=== PATIENT | male | born 1950 | race Caucasian/White ===

== ENCOUNTER → 2017-06-11 | Outpatient (CLI) | payer MEDICARE ==
[2017-06-11 10:30] LABS: BLOOD UREA NITROGEN 14 MG/DL (7-18)
[2017-06-11 10:30] LABS: CREATININE FOR GFR 0.96 MG/DL (0.70-1.30); GLOMERULAR FILTRATION RATE > 60.0 (>49)
== END ==
LOC: M LAB 09:32
DX: R42 Dizziness and giddiness (principal); Z86.73 Personal history of transient ischemic attack (TIA), and cerebral infarction without residual deficits
CPT/HCPCS: 82565

== ENCOUNTER → 2017-06-16 | Outpatient (CLI) | payer MEDICARE ==
[~2017-06-16] MED LIST: PROHANCE 279.3MG/ML 15ML VIAL (A9576) As Ordered
== END ==
LOC: M RAD 11:01
DX: Z86.73 Personal history of transient ischemic attack (TIA), and cerebral infarction without residual deficits (principal)
CPT/HCPCS: A9576

== ENCOUNTER → 2020-08-23 | Outpatient (CLI) | payer MEDICARE ==
[~2020-08-23] MED LIST changes: +CARD120C3 PO; +COQ-100C5 PO; +D31000CA4 PO; +ELIQ5TAB PO; +FINA5TAB2 PO; +FLOM0.4C39 PO; +IRBE300T7 PO; +LASI40TA9 PO; +LOSA100T50 PO; +MAGN100T PO; +OMEP-218 PO; +OYST500T92 PO; +PRAV80TA2 PO; -PROHANCE 279.3MG/ML 15ML VIAL (A9576) As Ordered; +SM P99TA PO
== END ==
LOC: M LABSMTC 11:57
PROVIDERS: ATTEND Anesthesiology
DX: Z01.818 Encounter for other preprocedural examination (principal); Z11.52 Encounter for screening for COVID-19

== ENCOUNTER 2020-08-28 13:33 | Day surgery (SDC) | payer MEDICARE ==
[~2020-08-28] VITALS: Ht 177.8 cm; Wt 111.1 kg
[~2020-08-28 13:33] MED LIST changes: +LIDOCAINE 1% MDV 20ML VIAL SQ PRN; +LR 1,000 ML IV ONE; +ceFAZolin SOD 2 GM in IV 1 EA IV ONE
[2020-08-28] MEDS ORDERED: fentaNYL 100 MCG/2 ML INJECTION (J3010) As Ordered ONE (15:09)
[2020-08-28] MEDS ORDERED: MIDAZOLAM INJ 2MG/2ML VIAL (J2250 PER 1MG) As Ordered ONE (15:09)
[2020-08-28] MEDS ORDERED: LIDOCAINE 2% 100MG/5ML SDV (FOR ANES.) As Ordered ONE (15:09)
[2020-08-28] MEDS ORDERED: propofoL 200 MG/20 ML VIAL As Ordered ONE ×2 (15:09→15:10)
[2020-08-28] MEDS ORDERED: LIDOCAINE 1% MDV 20ML VIAL As Ordered ONE (15:29)
[2020-08-28] MEDS ORDERED: ONDANSETRON 4MG/2ML VIAL As Ordered ONE (16:41)
[2020-08-28 17:04] VITALS: BP 136/72
--- NOTE | 2020-08-28 19:06 | RO ---
OPERATIVE NOTE DATE OF OPERATION: 08/28/2020 PREOPERATIVE DIAGNOSIS: Subcutaneous cardiac rhythm monitor (Biotronik) in situ. PREOPERATIVE DIAGNOSIS: Subcutaneous cardiac rhythm monitor (Biotronik) in situ. FINDINGS: Subcutaneous cardiac rhythm monitor (Biotronik) in situ. PROCEDURE PERFORMED: Removal of Biotronik subcutaneous cardiac rhythm monitor. SURGEON: Juan Ramirez M.D. REMEDIATION TECHNICIAN: None. ANESTHESIA: Lidocaine 1% local/monitored anesthetic care. SPECIMENS: Biotronik subcutaneous cardiac rhythm monitor. ESTIMATED BLOOD LOSS: Less than 5 mL. BLOOD PRODUCTS: No blood products were placed. DRAINS: None. COMPLICATIONS: None. PROCEDURE DESCRIPTION: The patient was prepped and draped over the left anterior chest. Lidocaine 1% was used for local anesthetic. An incision about 1.2 cm in length was made in the horizontal plane at the upper end of the subcutaneous cardiac rhythm monitor. The blade, as well as small amounts of cautery was used to get down to and through tissue overlying the superior end of the cardiac rhythm monitor. The cardiac rhythm monitor was gripped with a snap and pulled out of the pocket. A single 2-0 Vicryl suture was placed to the deep layer to approximate the deep layer. A 4-0 Biosyn suture was placed subcuticular with the free ends of the suture protruding through the skin 1 cm to both ends of the incision and was used to approximate the skin layer while Dermabond was being applied. Three layers of Dermabond were applied. The Biosyn suture was then pulled through the incision line and removed entirely. The patient tolerated the procedure well without any immediate complications.
== END 2020-08-28 17:04 | disposition home or self-care (01) ==
LOC: M SDC 13:33
PROVIDERS: ATTEND Internal Medicine Cardiovascular Disease
DX: Z45.09 Encounter for adjustment and management of other cardiac device (principal); I48.0 Paroxysmal atrial fibrillation; R00.1 Bradycardia, unspecified; I10 Essential (primary) hypertension; E78.00 Pure hypercholesterolemia, unspecified; K21.9 Gastro-esophageal reflux disease without esophagitis; G57.93 Unspecified mononeuropathy of bilateral lower limbs; Z86.73 Personal history of transient ischemic attack (TIA), and cerebral infarction without residual deficits; J44.9 Chronic obstructive pulmonary disease, unspecified; G47.30 Sleep apnea, unspecified; N40.0 Benign prostatic hyperplasia without lower urinary tract symptoms; Z87.891 Personal history of nicotine dependence; Z79.899 Other long term (current) drug therapy; Z79.01 Long term (current) use of anticoagulants
CPT/HCPCS: 33286; J0690; J2250; J2405; J3010

== ENCOUNTER → 2022-03-04 | Outpatient (REF) | payer MEDICARE ==
[~2022-03-04] MED LIST changes: +GNP99TAB3 PO; -LIDOCAINE 1% MDV 20ML VIAL SQ PRN; +LOSA100T45 PO; -LOSA100T50 PO; -LR 1,000 ML IV ONE; +OMEP-173 PO; -OMEP-218 PO; -SM P99TA PO; -ceFAZolin SOD 2 GM in IV 1 EA IV ONE
== END ==
LOC: M SMT 12:50
PROVIDERS: ATTEND Urology
DX: N40.2 Nodular prostate without lower urinary tract symptoms (principal)

== ENCOUNTER → 2022-04-10 | Outpatient (CLI) | payer MEDICARE ==
[~2022-04-10] MED LIST changes: +DILT30TA PO; +GNP250TA9 PO
== END ==
LOC: M LABSMTC 09:15
PROVIDERS: ATTEND Anesthesiology
DX: Z01.818 Encounter for other preprocedural examination (principal); Z11.52 Encounter for screening for COVID-19

== ENCOUNTER → 2022-05-05 | Outpatient (CLI) | payer MEDICARE ==
[~2022-05-05] MED LIST changes: +BACT800T5 PO; +BETA1OI TOP; +COLA100C5 PO; +PERCOCET PO; +REFR0.5D8 OU; +REST0.05 OU
== END ==
LOC: M PLARAD 12:34
PROVIDERS: ATTEND Internal Medicine Cardiovascular Disease
DX: C61 Malignant neoplasm of prostate (principal)
CPT/HCPCS: 78816; A9552

== ENCOUNTER → 2023-04-06 | Outpatient (REF) | payer MEDICARE ==
[~2023-04-06] MED LIST changes: +IRBE300T25 PO; -IRBE300T7 PO; -LOSA100T45 PO; +LOSA100T46 PO
[2023-04-06 17:52] LABS: APPEARANCE, URINE HAZY (CLEAR); BACTERIA, URINE AUTO NEGATIVE (NEGATIVE); BILIRUBIN, URINE AUTO NEGATIVE (NEGATIVE); BLOOD, URINE BLOOD 3+ (NEGATIVE); COLOR, URINE YELLOW (YELLOW); GLUCOSE, URINE (UA) AUTO NEGATIVE (NEGATIVE); KETONE, URINE AUTO NEGATIVE (NEGATIVE); LEUKOCYTE ESTERASE, URINE AUTO 1+ (NEGATIVE); MUCUS, URINE SMALL (NEGATIVE); NITRITE, URINE AUTO NEGATIVE (NEGATIVE); PROTEIN, URINE AUTO 1+ mg/dL (NEGATIVE); RBC, URINE AUTO 76 /HPF (0-3); SPECIFIC GRAVITY URINE AUTO 1.014 (1.002-1.035); SQUAMOUS EPITHELIAL CELL UR AU 0 /HPF (0-6); UROBILINOGEN, URINE AUTO 0.2 mg/dL (0.0-2.0); WBC, URINE AUTO 59 /HPF (0-3)
== END ==
LOC: M SMT 16:58
PROVIDERS: ATTEND Urology
DX: R33.9 Retention of urine, unspecified (principal)

== ENCOUNTER 2024-03-16 08:52 | Day surgery (SDC) | payer MEDICARE ==
[~2024-03-16] VITALS: Ht 177.8 cm; Wt 103.7 kg
[~2024-03-16 08:52] MED LIST changes: +COQ1200C3 PO; +DILT120C78 PO; +LIDOCAINE 2% 100MG/5ML SDV (FOR ANES.) As Ordered ONE; +MAGN400C2 PO; +METF-839 PO; +NORV5TAB PO; +OMEG10002 PO; +propofoL 200 MG/20 ML VIAL As Ordered ONE
[2024-03-16] MEDS ORDERED: NS (Normal Saline) 0.9% 1,000 ML IV SCH (09:40)
[2024-03-16] MEDS ORDERED: ONDANSETRON 4MG 2ML VIAL As Ordered ONE (09:51)
[2024-03-16] MEDS ORDERED: ACETAMINOPHEN 1000MG/100ML IV BAG As Ordered ONE (09:51)
[2024-03-16] MEDS: LIDOCAINE 2% 5ML JELLY UROJET As Ordered ONE (10:58)
[2024-03-16] MEDS: ceFAZolin SOD 2 GM in IV 1 EA IV ONE (11:03)
[2024-03-16] MEDS ORDERED: CEPH250T PO (11:40)
[2024-03-16 12:30] VITALS: BP 139/67; TEMP 96.8; O2SAT 96
== END 2024-03-16 12:30 | disposition home or self-care (01) ==
LOC: M SDC 08:52
PROVIDERS: ATTEND Urology
DX: N39.3 Stress incontinence (female) (male) (principal); Z85.46 Personal history of malignant neoplasm of prostate; I48.91 Unspecified atrial fibrillation; I10 Essential (primary) hypertension; E78.00 Pure hypercholesterolemia, unspecified; E11.40 Type 2 diabetes mellitus with diabetic neuropathy, unspecified; G47.30 Sleep apnea, unspecified; Z79.899 Other long term (current) drug therapy; Z79.84 Long term (current) use of oral hypoglycemic drugs; Z79.01 Long term (current) use of anticoagulants; Z86.73 Personal history of transient ischemic attack (TIA), and cerebral infarction without residual deficits; Z90.79 Acquired absence of other genital organ(s); K21.9 Gastro-esophageal reflux disease without esophagitis; Z91.048 Other nonmedicinal substance allergy status; Z90.89 Acquired absence of other organs; Z87.891 Personal history of nicotine dependence
CPT/HCPCS: 51715; J0131; J0690; J2405; L8606